=== PATIENT | male | born 1985 ===

== ENCOUNTER 2018-12-05 18:05 | Outpatient (CLI) | payer OTHER | END 2018-12-05 19:50 | disposition home or self-care (01) | LOC: LAB 18:05 | DX: D51.8 Other vitamin B12 deficiency anemias (principal); D50.8 Other iron deficiency anemias; D55.0 Anemia due to glucose-6-phosphate dehydrogenase [G6PD] deficiency; D51.0 Vitamin B12 deficiency anemia due to intrinsic factor deficiency; D51.1 Vitamin B12 deficiency anemia due to selective vitamin B12 malabsorption with proteinuria; E06.3 Autoimmune thyroiditis; E03.8 Other specified hypothyroidism; I10 Essential (primary) hypertension; R97.0 Elevated carcinoembryonic antigen [CEA]; R91.8 Other nonspecific abnormal finding of lung field ==

== ENCOUNTER → 2023-12-22 09:41 | Outpatient (CLI) | payer OTHER ==
[2023-12-22 10:28] LABS: HEMATOCRIT 41.1 % (39.0-48.0); HEMOGLOBIN 13.9 g/dL (13-16.00); MEAN CELL VOLUME 102.6 fL (80.0-100.00); MEAN CORPUSCULAR HEMOGLOBIN 34.8 pg (27.00-32.0); MEAN CORPUSCULAR HGB CONC 33.9 g/dl (32.0-36.0); PLATELET COUNT 214 K/uL (150-450); RED BLOOD COUNT 4.01 M/uL (4.00-6.00); RED CELL DISTRIBUTION WIDTH 13.4 % (11.5-14.5)
[2023-12-22 11:22] LABS: % SATURACION 31.7 % (20-50); ALBUMIN 3.9 gm/dL (3.4-5.0); BILIRUBIN TOTAL 0.58 mg/dL (0.3-1.2); CALCIUM 9.2 mg/dL (8.5-10.1); CREATININE SERUM 1.17 mg/dL (0.70-1.30); FERRITIN 85.9 NG/ML (26-388); GFR 69.04; POTASSIUM 4.13 mEq/L (3.5-5.1); TOTAL PROTEIN 6.9 gm/dL (6.4-8.2); TSH 0.868 uIU/mL (0.358-3.74)
[2023-12-22 11:35] LABS: MANUAL PLATELET COUNT 264
[2023-12-22 11:36] LABS: PLATELET ESTIMATE NORMAL (NORMAL)
[2023-12-22 13:52] LABS: FOLIC ACID > 20.00 ng/ml (4.78-20)
[2023-12-23 10:08] LABS: ANTI THYROID PEROXIDASE < 9 IU/mL (0-34); TRANSFERIN 272 mg/dL (177-329)
[2023-12-23 16:11] LABS: hgb a 97.4 % (96.4-98.8); hgb a2 2.6 % (1.8-3.2); hgb f 0 % (0.0-2.0); hgb s 0 % (0.0)
[2023-12-25 16:06] LABS: g6pd quant 274 (127-427); rbc 4.02 x10E6/uL (4.14-5.80)
== END | disposition home or self-care (01) ==
LOC: LAB 09:41
PROVIDERS: ATTEND Internal Medicine Hematology & Oncology
DX: D50.8 Other iron deficiency anemias (principal); R79.9 Abnormal finding of blood chemistry, unspecified; I10 Essential (primary) hypertension; R74.02 Elevation of levels of lactic acid dehydrogenase [LDH]; K76.89 Other specified diseases of liver; D63.8 Anemia in other chronic diseases classified elsewhere; D55.0 Anemia due to glucose-6-phosphate dehydrogenase [G6PD] deficiency; E53.1 Pyridoxine deficiency; E06.3 Autoimmune thyroiditis; E03.8 Other specified hypothyroidism; D51.3 Other dietary vitamin B12 deficiency anemia